=== PATIENT | male | born 1985 | race Caucasian/White ===

== ENCOUNTER 2017-02-12 01:33 | Observation (INO) | payer MEDICAID, OTHER ==
[~2017-02-12] VITALS: Ht 180.3 cm; Wt 122.0 kg
[2017-02-12 03:00] VITALS: BP 142/90; PULSE 70; RESP 16; O2SAT 98
[2017-02-12] MEDS ORDERED: Alum-Mag Hydrox-Simeth 30 mL Suspension PO PRN (03:35)
[2017-02-12] MEDS ORDERED: Polyethylene Glycol (PEG) 17 Gm Powder PO PRN (03:35)
[2017-02-12] MEDS ORDERED: Magnesium Sulf 2 Gm/50mL Water 2 GM in IV Premix 1 EACH IV ONE (04:05)
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
[2017-02-12] MEDS ORDERED: Vancomycin Inj 1,000 MG in IV Premix 1 EACH IV ONE ×2 (05:20→06:20)
[2017-02-12 05:41] VITALS: PULSE 76
[2017-02-12 06:13] LABS: APPEARANCE,URINE CLEAR (CLEAR,HAZY); COLOR,URINE STRAW (YELLOW); OCCULT BLOOD,URINE NEGATIVE (NEGATIVE); PH,URINE 6.5 (5.0-8.0)
--- NOTE | 2017-02-12 06:23 | PCM.CONPHA ---
Subjective Date of Service: Feb 12, 2017 Requesting Provider: Joceline Smith DO Left-sided chest pain/shoulder pain, in addition to diffuse body pain Reason for Pharmacy Consult: Vancomycin Dosing Objective Vital Signs Date Time Temp Pulse Resp B/P Pulse Ox O2 Delivery O2 Flow Rate FiO2 02/12/17 05:41 76 02/12/17 03:00 36.6 70 16 142/90 98 Room Air Weight (Kilograms): 122.000 Height (Feet): 5 Height (Inches): 11.00 Test 02/12/17 06:01 Urine Color Straw (YELLOW) Urine Appearance Clear (CLEAR,HAZY) Urine pH 6.5 (5.0-8.0) Urine Specific [place] 1.012 (1.003-1.035) Urine Protein Negativemg/dL (NEG,TRACE) Urine Glucose (UA) Negativemg/dL (NEGATIVE) Urine Ketones Negativemg/dL (NEGATIVE) Urine Occult Blood Negative (NEGATIVE) Urine Nitrite Negative (NEGATIVE) Urine Bilirubin Negative (NEGATIVE) Urine Urobilinogen 1.0mg/dL (NORMAL) Urine Leukocyte Esterase Negative (NEGATIVE) Urine RBC 0-2/hpf (0-2) Urine WBC 0-5/hpf (0-5) Urine Epithelial Cells Occasional/hpf (NONE-MOD) Urine Crystals None seen (NONE SEEN) Urine Bacteria Few/hpf (NONE-FEW) Urine Hyaline Casts None/lpf (NONE) Urine Granular Casts None seen (NONE SEEN) Urine Waxy Casts None seen (NONE SEEN) Urine Red Blood Cell Casts None seen (NONE SEEN) Urine White Blood Cell Casts None seen (NONE SEEN) Urine Mucus None seen (None Seen) Urine Trichomonas None seen (NONE SEEN) Urine Yeast None (NONE SEEN) Urinalysis Comment None Urine Culture Reflexed Not indicated Assessment/Plan Assessment/Plan A: * Vancomycin dosing management by pharmacy for 31 y/o man with suspected endocarditis, history of IVDU * He was given vancomycin 1000 mg IV at [facility] at around 0200 this morning * Estimated CrCl for this patient is > 120 mL/min (Cockcroft & Gault using AdjBW ) * Estimated vancomycin half-life is 7 hours and estimated volume of distribution is 85 liters P: * Give an additional vancomycin 1000 mg IV dose to make up a total loading dose of 2000 mg * Continue with vancomycin 1500 mg IV every 8 hours after that * Target a vancomycin trough range of 15 - 20 mcg/mL * Draw a trough level prior to the third 1500 mg dose Thank you. Pharmacy will continue to follow this patient. Madyson Nance Feb 12, 2017 06:23
[2017-02-12 08:00] VITALS: PULSE 73
[2017-02-12] MEDS: Vancomycin Dose per Pharmacist XX SCH (08:30)
[2017-02-12] MEDS: Heparin 5,000 Unit/mL Inj SUBQ SCH ×2 (08:30→16:08)
[2017-02-12 09:48] VITALS: BP 129/74; PULSE 68; RESP 18; O2SAT 100
[2017-02-12] MEDS: Ondansetron 2 mg/mL 2 mL Inj IVPUSH PRN ×2 (10:09→17:26)
--- NOTE | 2017-02-12 10:37 | DRSVH ---
[facility] [address] [place] [address] Echocardiogram Report Name: DEONDRE VASQUEZ JStudy Date: 02/12/2017 Height: 71 in Hospital Exam Location: [facility] Weight: 268 lb Gender: Male BSA: 2.4 m2 : 1985 Age: 31 yrs BP: 142/90 mmHg Reason For Study: Endocarditis Ordering Physician: Performed By: [facility] Interpretation Summary Technically difficult study with limited visualization of valves. 1) Upper normal left ventricular size with normal thickness, wall motion, and systolic function (EF 55-60%). 2) Normal right ventricular size and function. 3) No significant valvular abnormalities. 4) No prior Echo available for comparison. If there is suspicion for endocarditis, consider OLIVERIO. Procedure: A two-dimensional transthoracic echocardiogram with color flow and Doppler was performed. The study quality was technically adequate. There is no prior echocardiogram noted for this patient. The patient was in normal sinus rhythm during the exam. Left Ventricle: There is normal left ventricular wall thickness. Left ventricular size is at the upper limits of normal. The ejection fraction is estimated to be 55-60%. Assessment of diastolic parameters indicates normal left ventricular diastolic function and normal filling pressures. Right Ventricle: The right ventricle is normal in size and function. Atria: The left atrial size is normal. Right atrial size is normal. The interatrial septum is intact with no evidence for an atrial septal defect. Mitral Valve: The mitral valve is normal in structure and function. There is no mitral regurgitation noted. Aortic Valve: The aortic valve opens well. No aortic regurgitation is present. Tricuspid Valve: The tricuspid valve is normal in structure and function. There is trace tricuspid regurgitation. The right ventricular systolic pressure is estimated at 37 mmHg assuming a right atrial pressure of 8 mm Hg. Pulmonic Valve: The pulmonic valve is normal in structure and function. There is trace pulmonic regurgitation. Great Vessels: The aortic root is normal size. The ascending aorta could not be visualized. The IVC is dilated (diameter is greater than 2.1 cm) yet it collapses greater than 50% with a sniff. This suggests a right atrial pressure of 8 mm Hg. Pericardium/ Pleura There is no pericardial effusion. There is no pleural effusion. MMode/2D Measurements & Calculations LVIDd: 5.9 cm LA dimension: 3.7 cm RA long axis Ao root diam LVIDs: 3.8 cm FS: 36.5 % LA A2 area: 24.0 cm RA area Aortic Jxn IVSd: 0.99 cm LA A4 area: 20.4 cm : 3.2 cm LVPWd: 1.0 cm LA length (vol): 5.0 cm : 20.4 cm LA vol: 82.4 ml RA vol: 74.3 ml LA vol index RA : 31.1 mm2 IVC diam: 2.6 cm LV saeed. diameter/BSA LV sys. diameter/BSA (cm/m^2): 2.5 (cm/m^2): 1.6 Doppler Measurements & Calculations Ao V2 max MV E max rob MV E/A: 1.3 TR max rob : 145.0 cm/sec : 80.1 cm/sec Med Peak E' Rob : 268.3 cm/sec Ao max PG MV A max rob TR max PG : 8.4 mmHg : 63.4 cm/sec E/E' med: 7.1 : 28.8 mmHg Ao mean PG MV P1/2t: 66.2 msec Lat Peak E' Rob PA V2 max : 3.9 mmHg : 87.7 cm/sec E/E' lat: 5.8 PA mean PG E/e' average: 6.5 PA Accel Time : 0.19 sec MV dec time MV P1/2t max rob Ao V2 mean PA V2 mean : 0.23 sec : 90.8 cm/sec : 57.3 cm/sec Ao V2 VTI: 29.5 cm MVA(P1/2t): 3.3 cm2 Reading Physician:10:37 AM
[2017-02-12 10:40] LABS: BASOPHILS % (AUTO) 0.2 % (0-3); EOSINOPHILS % (AUTO) 6.2 % (0-5); MONOCYTES % (AUTO) 9.4 % (4-12); Mean Corpuscular Hemoglobin 26.7 pg (27.0-35.0); Mean Corpuscular Volume 78.4 fL (81-100); NEUTROPHILS % (AUTO) 71.2 % (40-74); Platelet Count 133 bil/L (150-400)
[2017-02-12 11:28] LABS: TROPONIN T 0.01 ug/L (0.0-0.011)
[2017-02-12] MEDS: Vancomycin Inj 1,500 MG in 0.9% Sodium Chloride 500 ML IV SCH ×2 (13:20→21:50)
[2017-02-12 14:01] VITALS: BP 132/78; PULSE 64; RESP 16; O2SAT 100
[2017-02-12] MEDS: 0.9% Sodium Chloride 1,000 ML IV SCH (18:26)
[2017-02-12] MEDS ORDERED: Buprenorphine 2 mg SL Tablet SL SCH (21:05)
[2017-02-12] MEDS ORDERED: cloNIDine 0.1 mg Tablet PO ONE (21:20)
[2017-02-12 22:08] VITALS: BP 136/81; PULSE 78; RESP 18; O2SAT 98
[2017-02-13] MEDS: Heparin 5,000 Unit/mL Inj SUBQ SCH ×3 (00:43→17:06)
[2017-02-13] MEDS ORDERED: Vancomycin Serum Trough XX ONE (04:30)
[2017-02-13] MEDS: 0.9% Sodium Chloride 1,000 ML IV SCH ×2 (04:51→14:05)
[2017-02-13 05:47] LABS: BASOPHILS % (AUTO) 0.2 % (0-3); EOSINOPHILS % (AUTO) 5.6 % (0-5); MONOCYTES % (AUTO) 8.3 % (4-12); Mean Corpuscular Hemoglobin 26.1 pg (27.0-35.0); Mean Corpuscular Volume 78.9 fL (81-100); NEUTROPHILS % (AUTO) 68.3 % (40-74); Platelet Count 148 bil/L (150-400)
[2017-02-13] MEDS: Vancomycin Inj 1,500 MG in 0.9% Sodium Chloride 500 ML IV SCH (06:49)
--- NOTE | 2017-02-13 08:28 | PCM.PNMED ---
Subjective Date of Service Feb 13, 2017 Subjective Patient seen and examined. Complains of left shoulder pain. Vitals stable and WNL. Exam Vital Signs Vital Sign - Last Date Time Temp Pulse Resp B/P Pulse Ox O2 Delivery O2 Flow Rate FiO2 02/12/17 22:08 36.7 78 18 136/81 98 Room Air Intake and Output 02/12/17 02/12/17 02/13/17 Cumulative From/Thru 15:00 23:00 07:00 02/12/17 03:52 - 02/13/17 06:42 Intake Total 1350 ml 2081 ml 3831 ml Output Total 1950 ml 1150 ml 4200 ml Balance -600 ml 931 ml -369 ml Intake Oral 1350 ml 480 ml 2230 ml IV Total 1601 ml 1601 ml Output Urine Total 1675 ml 1150 ml 3925 ml Emesis 275 ml 275 ml # Bowel Movements 0 0 0 Exam General: Obese gentleman resting in bed in no acute distress, alert and oriented 3, mild distress Cardiac: Regular rate and rhythm at time of examination without any appreciable murmurs Chest: Normal appearing anatomy without any evidence of obvious trauma, no ecchymoses or areas of erythema; pain reproducible with palpation along left sternal border extending into axilla along third and fourth rib margins Respiratory: Adequate airflow all sr without wheeze or crackles Abdomen: Obese, soft, nontender, nondistended Skin: Warm and dry MSK: Right upper extremity full range of motion at glenohumeral and humeral ulnar joint; left upper extremity glenohumeral range of motion limited by pain, left humeroulnar joint full range of motion without pain; no evidence of superficial erythema, swelling, injection site infection, tracking, or cellulitis Extremities: Bilateral lower extremity edema, mild, extending from dorsum to ankle Neuro: Cranial nerves II through XII grossly intact, facial expressions symmetric, speech without slurring Psych: Appropriate mood, affect, and responses to questioning, limited insight and judgment based on continued IV drug use Lab and Diagnostics Result Diagram: 02/13/1752902/13/17529 Assessment & Plan Mr. Alaniz is a 31 year old gentleman with a history of heroin IVDU with most recent use reported as 24-48hours prior to admission, that presented to [facility] with complaint of left sided chest and shoulder pain. Blood cultures were obtained, gentamicin and vancomycin were provided, in addition to 1 L normal saline, and morphine 4 mg IV 2 ; labs revealed elevated d-dimer at 5.58, CTA was reportedly completed but results not included with transfer. Other labs included white count 11.6, lactic acid 0.8, negative troponin. [place] EKG did not reveal any ST-T changes, and chest x-ray was reported to reveal normal shoulder anatomy. Patient was transferred for further evaluation for endocarditis. History of IV drug use, chronic, withdrawl - Patient reports history of heroin IV use, reports most recent use 24-48 hours before admission - Transfer documentation states last use was 3 weeks ago, and/or 1 week ago; history is inconsistent - Monitor for symptoms of withdrawal; CIWA + oral opiods to control withdrawal - DECORATING [employer] referral placed for resources' Left shoulder pain, acute, present on admission, ongoing - Patient reports limited range of motion left glenohumeral joint secondary to significant pain - No evidence of erythema or effusion - XR Shoulder ordered Suspected endocarditis, acute, present on transfer, under evaluation - Transfer indication: Evaluation for endocarditis - Initial temp 98.2F, repeat temperature here 36.6 Celsius; no documented fevers - On physical exam, no evidence of murmur, TTE normal - Labs from [facility]: Lactic acid 0.8, white count 11.6 (WNL here, so could be reactive) with 79.6% neutrophils; d-dimer 5.58 (likely due to heroine use) - Blood Cx drawn here, no growth so far - Continue vancomycin per pharmacy at this time until BCx negative Chest pain, acute, present on admission, under evaluation - [place] CC: Chest pain - Per transfer documentation: EKG without acute ST-T changes, troponin negative - DDx: Cardiac etiology including endocarditis, most likely MSK, as pain is reproducible with palpation - Troponins -ve - EKG as needed for chest pain - Physical therapy evaluation Hypomagnesemia, chronicity unknown, present on admission - On transfer: Magnesium 1.7 - Repleted on admit with 2 g Elevated d-dimer, chronicity unknown, present on admission, under evaluation - Transfer records indicate d-dimer 5.58 - Records state that CTA was completed, negative for PE - likely secondary to heroin abuse Bilateral lower extremity edema, chronicity unknown, present on admission, under evaluation - Patient reports both feet are usually edematous - Physical exam on admission revealed mild bilateral lower extremity edema extending from dorsum to ankles - Echocardiogram : normal Tobacco use disorder, chronic, presumed stable - Patient reports approximately one pack per day - Declined nicotine patch at time of admission - Nicotine patch as needed PRN bowel/fever/pain/antiemetic GI: Not indicated Diet: General DVT: Hep q8 CODE STATUS: Full code Patient status: Due to presenting symptoms, risk of adverse events, and likely course of care, anticipated length of stay does not exceed 2 midnights; patient admitted as observation at this time. Suspect that further workup will be negative, but will further evaluate for evidence of endocarditis with ultrasound , as this was the indication for patient transfer from [place], and this diagnosis may explain elevated d-dimer and patient that has a reported negative CTA GI Prophylaxis: Not indicated VTE Prophylaxis: Sub-Q Heparin (Unfractionated) Resuscitation Status: CPR: Attempt Resuscitation Time spent 35 mins Pieter Dooley MD Feb 13, 2017 08:28
[2017-02-13] MEDS: Vancomycin Dose per Pharmacist XX SCH (08:30)
[2017-02-13] MEDS ORDERED: Vancomycin Inj 1,000 MG in IV Premix 1 EACH IV ONE (10:20)
--- NOTE | 2017-02-13 11:06 | DRSVH ---
PROCEDURE: X-RAY LEFT SHOULDER, MINIMUM TWO VIEWS ([id number]) INDICATIONS: Shoulder pain TECHNIQUE: 3 views of the shoulder were acquired. COMPARISON: None. FINDINGS: Bones: No fractures or dislocations. No suspicious bony lesions. Visualized ribs appear intact. Soft tissues: No suspicious soft tissue calcifications. IMPRESSION: Source of pain is not seen. Dictated by: Lamin Mcdermott M.D. on 02/13/2017 at 11:04 Approved by: Lamin Mcdermott M.D. on 02/13/2017 at 11:05
--- NOTE | 2017-02-13 13:49 | PCM.PHAPRO ---
Progress Left-sided chest pain/shoulder pain, in addition to diffuse body pain Pharmacy Kinetic Dosing Vancomycin Indication: Possible endocarditis Goal vanc trough: 15-20 mcg/ml Pt wt: 122 kg Other ABX: None Latest SCr: 0.48 Latest WBC: 8.1 (stable) Latest Cultures: Blood & MRSA (pending) Last vanc trough: 6.9 (02/13/17; drawn 9 hrs after last dose) Current dose: 1,500 mg every 8 hrs Assessment/Plan: -Loading dose of 1,000 mg given at [place]. Additional 1,000 mg was ordered to be given when admitted to [facility] but dose was never administered on 02/12/17. -ECHO results do not confirm infection and recommend OLIVERIO if suspected. PT medically stable and didnt present with leukocytosis. -Will give additional vancomycin 1,000mg once to make up for lack of complete loading dose. -Will continue with 1,500 mg every 8 hrs and repeat trough 02/14/17@0830 (after 2 more scheduled doses) Pharmacy appreciates consult and will continue to monitor. Thanks, Ronald Pfeiffer, PharmD Ronald Pfeiffer Feb 13, 2017 13:49
[2017-02-13 14:51] VITALS: BP 146/87; PULSE 51; RESP 18; O2SAT 97
[2017-02-13] MEDS ORDERED: TRAM50TA2 PO (15:28)
--- NOTE | 2017-02-13 15:41 | PCM.DIMED ---
Discharge Instructions Date of Service Feb 13, 2017 Dates of Hospitalization Feb 12, 2017 at 02:46 Discharge Diagnosis Discharge Diagnosis Shoulder pain opiod abuse Diet Discharge Diet: No restrictions Activity Discharge Activity: No restrictions Call your provider Call your provider for: Fever or Chills, Chest pain Patient Instructions Follow-up with PCP in: 1 week Pieter Dooley MD Feb 13, 2017 15:41
[2017-02-13] MEDS ORDERED: Vancomycin Inj 1,500 MG in 0.9% Sodium Chloride 500 ML IV SCH (17:00)
[2017-02-13] MEDS ORDERED: CYCL10TA9 PO (17:34)
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
[2017-02-14] MEDS ORDERED: Vancomycin Serum Trough XX ONE (08:30)
== END 2017-02-13 18:53 | disposition home or self-care (01) ==
LOC: MPC 02:46 → INTOOBSV 02:46
PROVIDERS: ADMIT Internal Medicine; ATTEND Internal Medicine
DX: R07.89 Other chest pain (principal); M25.512 Pain in left shoulder; F11.20 Opioid dependence, uncomplicated; E83.42 Hypomagnesemia; R79.89 Other specified abnormal findings of blood chemistry; R60.0 Localized edema; F12.90 Cannabis use, unspecified, uncomplicated; F17.210 Nicotine dependence, cigarettes, uncomplicated
CPT/HCPCS: 36415; 73030; 80048; 80202; 81000; 83605; 84145; 84484; 85025; 87040; 87641; 96365; 96366; 96375; 96376; 97110; 97116; 97162; C8929; G0378; G0379; J1644; J1885; J2270; J2405; J3360; J3370; J7030; J7040